=== PATIENT | female | born 1950 | race Caucasian/White ===

== ENCOUNTER 2016-04-10 09:53 | Observation (INO) | payer MEDICARE, OTHER ==
[~2016-04-10] VITALS: Ht 158.8 cm; Wt 61.6 kg
[2016-04-10] VITALS (8 sets, daily range): BP systolic 116–155; RESP 16–20; TEMP 97.8–98.5; Ht 158.8 cm; Wt 61.6 kg
[2016-04-10] MEDS ORDERED: DEXTROSE 50% SYRINGE 50 ML IV PRN (10:20)
[2016-04-10] MEDS ORDERED: ONDANSETRON 4 MG VIAL IV PRN (10:20)
[2016-04-10] MEDS ORDERED: ALBUMIN HUMAN 25GM (25%) 100 ML IV PRN (10:20)
[2016-04-10] MEDS ORDERED: GLUCAGON 1 MG VIAL IM PRN (10:20)
[2016-04-10] MEDS ORDERED: ACETAMINOPHEN 325 MG TAB PO PRN (10:20)
[2016-04-10] MEDS ORDERED: SODIUM CHLORIDE 0.9% 1,000 ML IV SCH ×2 (10:20)
[2016-04-10] MEDS ORDERED: SODIUM CHLORIDE 0.9% 1,000 ML IV PRN (10:20)
[2016-04-10] MEDS ORDERED: ONDANSETRON 4 MG VIAL IV PUSH PRN (10:20)
[2016-04-10] MEDS: BUMETANIDE 1 MG/4 ML VIAL IV SCH ×2 (16:00→23:28)
[2016-04-10] MEDS: OXYCODONE/APAP 7.5/325 TAB PO PRN (19:13)
[2016-04-10] MEDS: ASPIRIN 81 MG CHEW TAB PO SCH (19:13)
[2016-04-10] MEDS: LORATADINE 10 MG TAB PO SCH (19:14)
[2016-04-10] MEDS: LEVEMIR INSULIN SUBQ SCH (19:14)
[2016-04-10] MEDS: LEVOTHYROXINE 0.025 MG TAB PO SCH (19:14)
[2016-04-10] MEDS: CITALOPRAM 20 MG TAB PO SCH (19:14)
[2016-04-10] MEDS: GABAPENTIN 300 MG CAP PO SCH ×2 (19:15→20:26)
[2016-04-10] MEDS: CALCIUM ACETATE 667MG CAP PO SCH (19:16)
[2016-04-10] MEDS: CEFTRIAXONE 1 GM in SODIUM CHLORIDE 0.9% 50 ML IV SCH (20:27)
[2016-04-10] MEDS ORDERED: MISSING DOSE XX ONE (20:40)
[2016-04-11 03:49] VITALS: BP_SYST 129; RESP 16; TEMP 98
[2016-04-11] MEDS: OXYCODONE/APAP 7.5/325 TAB PO PRN ×3 (04:31→19:24)
[2016-04-11] MEDS: LEVOTHYROXINE 0.025 MG TAB PO SCH (06:25)
[2016-04-11 07:33] VITALS: BP_SYST 134; RESP 16; TEMP 98.2
[2016-04-11] MEDS: BUMETANIDE 1 MG/4 ML VIAL IV SCH ×2 (07:58→17:14)
[2016-04-11] MEDS: CEFTRIAXONE 1 GM in SODIUM CHLORIDE 0.9% 50 ML IV SCH (07:58)
[2016-04-11] MEDS: GABAPENTIN 300 MG CAP PO SCH ×3 (07:59→21:07)
[2016-04-11] MEDS: CITALOPRAM 20 MG TAB PO SCH (07:59)
[2016-04-11] MEDS: ASPIRIN 81 MG CHEW TAB PO SCH (07:59)
[2016-04-11] MEDS: CALCIUM ACETATE 667MG CAP PO SCH ×3 (07:59→17:13)
[2016-04-11] MEDS: LORATADINE 10 MG TAB PO SCH (07:59)
[2016-04-11] MEDS: LEVEMIR INSULIN SUBQ SCH (08:41)
[2016-04-11 15:05] VITALS: BP_SYST 122; RESP 16; TEMP 98.1
[2016-04-11] MEDS ORDERED: MISSING DOSE XX ONE (16:55)
[2016-04-11 19:17] VITALS: BP_SYST 144; RESP 16; TEMP 98.1
[2016-04-11 23:05] VITALS: BP_SYST 121; RESP 16; TEMP 98
[2016-04-12] MEDS: BUMETANIDE 1 MG/4 ML VIAL IV SCH ×2 (01:21→14:25)
[2016-04-12 03:20] VITALS: BP_SYST 125; RESP 16; TEMP 97.9
[2016-04-12] MEDS: OXYCODONE/APAP 7.5/325 TAB PO PRN ×2 (03:39→13:46)
[2016-04-12] MEDS: LEVOTHYROXINE 0.025 MG TAB PO SCH (06:20)
[2016-04-12 07:15] VITALS: BP_SYST 133; RESP 18; TEMP 97.7
[2016-04-12] MEDS: LEVEMIR INSULIN SUBQ SCH (07:58)
[2016-04-12] MEDS: CALCIUM ACETATE 667MG CAP PO SCH ×2 (08:00→13:44)
[2016-04-12 09:38] VITALS: BP_SYST 138; RESP 18; TEMP 98
[2016-04-12 09:42] VITALS: BP_SYST 138; RESP 18; TEMP 98
[2016-04-12 13:38] VITALS: BP_SYST 138; RESP 18; TEMP 97.7
[2016-04-12] MEDS: GABAPENTIN 300 MG CAP PO SCH (13:45)
[2016-04-12] MEDS: ASPIRIN 81 MG CHEW TAB PO SCH (13:45)
[2016-04-12] MEDS: CITALOPRAM 20 MG TAB PO SCH (13:45)
[2016-04-12] MEDS: LORATADINE 10 MG TAB PO SCH (13:45)
[2016-04-12] MEDS: CEFTRIAXONE 1 GM in SODIUM CHLORIDE 0.9% 50 ML IV SCH (13:46)
[2016-04-12] MEDS ORDERED: MISSING DOSE XX ONE (14:05)
== END 2016-04-12 14:40 | disposition home or self-care (01) ==
LOC: 5THE 10:18 → UNDOADMOB 12:41 → 5THE 12:41 → ENPENDDIS 12:41
PROVIDERS: ADMIT Internal Medicine Nephrology; ATTEND Internal Medicine Nephrology
CPT/HCPCS: 71010 ×2; 80053 ×2; 82947 ×2; 85025 ×2; 93306 ×2; 97799; J0696